=== PATIENT | male | born 1950 | race Caucasian/White ===

== ENCOUNTER → 2022-09-19 10:38 | Outpatient (BNVA) | payer MEDICARE, OTHER, SELFPAY | PROVIDERS: PCP Registered Nurse; Referring Provider Registered Nurse; Visit Provider Nurse Practitioner Gerontology | DX: N40.1 Benign prostatic hyperplasia with lower urinary tract symptoms (principal); R31.29 Other microscopic hematuria | CPT/HCPCS: 36415; 51798; 81003; 99205 ==

== ENCOUNTER 2022-09-19 13:30 | Outpatient (REF) | payer MEDICARE, OTHER, SELFPAY ==
[2022-09-19 14:24] LABS: Bilirubin Negative (Negative); Blood Trace-intact (Negative); Clarity Clear (Clear); Glucose Negative (Negative); Ketones Negative (Negative); Leukocyte Esterase Negative (Negative); Nitrite Negative (Negative); Urobilinogen 0.2 mg/dL (Up to 0.2); pH 6.5 (5-8)
[2022-09-19 14:31] LABS: Bacteria Negative HPF (Negative); C & S Indicated? No; Casts Negative LPF (Negative); Crystals Negative HPF (Negative); Epithelial Cells Rare HPF (Negative); Mucus Negative (Negative); RBC 0-2 HPF (0-2); WBC Negative HPF (0-5)
[2022-09-20 08:43] LABS: PSA, Diagnostic 0.8 ng/mL (<=6.5)
== END 2022-09-19 13:31 | disposition home or self-care (01) ==
LOC: LBN 13:30
PROVIDERS: PCP Registered Nurse; Visit Provider Nurse Practitioner Gerontology
DX: R31.29 Other microscopic hematuria (principal); N40.1 Benign prostatic hyperplasia with lower urinary tract symptoms
CPT/HCPCS: 81003; 81015; 84153

== ENCOUNTER → 2023-01-30 09:31 | Outpatient (BNVA) | payer MEDICARE, OTHER, SELFPAY | PROVIDERS: PCP Registered Nurse; Referring Provider Registered Nurse; Visit Provider Physician Assistant Surgical | DX: R05.3 Chronic cough (principal); L94.0 Localized scleroderma [morphea]; G47.33 Obstructive sleep apnea (adult) (pediatric) | CPT/HCPCS: 99214 ==

== ENCOUNTER → 2023-10-24 12:32 | Outpatient (BNVA) | payer MEDICARE, OTHER, SELFPAY | PROVIDERS: PCP Registered Nurse; Referring Provider Registered Nurse; Visit Provider Physician Assistant Surgical | DX: R05.3 Chronic cough (principal); L94.0 Localized scleroderma [morphea]; I27.20 Pulmonary hypertension, unspecified; G47.33 Obstructive sleep apnea (adult) (pediatric) | CPT/HCPCS: 99214 ==

== ENCOUNTER 2023-10-24 14:35 | Outpatient (CLI) | payer MEDICARE, OTHER, SELFPAY ==
[2023-10-24 14:18] LABS: Abs Immature Grans 0.05 10^3/uL (0.0-0.06); Absolute Basophil Count 0.06 10^3/uL (0.0-0.2); Absolute Eosinophil Count 0.38 10^3/uL (0.0-0.7); Absolute Monocyte Count 1.18 10^3/uL (0.1-0.8); Absolute Neutrophil Count 5.81 10^3/uL (1.2-6.7); Basophils % 0.6 %; Eosinophils % 4.1 %; HCT 43.6 % (40.0-50.0); HGB 14.5 g/dL (13.5-17.5); Immature Grans % 0.5 %; Lymphocytes % 20.3 %; MCH 30.9 pg (27.0-33.0); MCHC 33.3 % (32.0-36.0); MCV 93 fL (80-95); MPV 10.4 fL (8.0-11.0); Monocytes % 12.6 %; Neutrophils % 61.9 %; Platelet Count 312 10^3/uL (130-400); RDW 14.4 % (11.8-14.1); RDW-SD 49.5 fL; WBC 9.38 10^3/uL (4.4-10.8)
[2023-10-24 22:37] LABS: IgE 44 IU/mL (<158)
== END 2023-10-24 14:36 | disposition home or self-care (01) ==
LOC: LBO 14:36
PROVIDERS: PCP Registered Nurse; Visit Provider Physician Assistant Surgical
DX: J45.909 Unspecified asthma, uncomplicated (principal); R05.3 Chronic cough
CPT/HCPCS: 36415; 99214; 82785; 85025

== ENCOUNTER → 2023-11-19 01:31 | Outpatient (CLI) | payer MEDICARE, OTHER, SELFPAY ==
--- NOTE | 2023-11-19 13:18 | DI.CT_ITS ---
Exam(s) CT CHEST WO EXAM: CT CHEST WO CLINICAL HISTORY: chronic cough,R41.3,R05.3,L94.0 TECHNIQUE: Imaging Protocol: Axial computed tomography images with coronal and sagittal reformatted images were created and reviewed CONTRAST MATERIAL: Intravenous: Omnipaque 350 Contrast volume:structured data ml. COMPARISON: CR XR CHEST 2VW (D) from 11/06/2022 FINDINGS: Pulmonary parenchyma: No consolidation. 6 millimeter diameter nodule in the anterior right upper lob e. 5 millimeter diameter nodule left lower lobe. 3 millimeter nodule right lower lobe. No visible emphysematous or fibrotic changes. Tracheobronchial tree: No bronchiectasis or mucous plugging. Mediastinum and Avril: No dominant adenopathy or fluid collection. Pleura: No effusion. No pneumothorax. Heart: The heart is mildly dilated. Mild coronary artery calcifications are seen. Aorta: Thoracic aorta non-dilated. Mild atherosclerotic changes. Pulmonary arteries: No gross evidence of emboli. Upper abdomen: No acute findings. Bones: Degenerative changes in the spine. Soft tissues: Mild bilateral gynecomastia. IMPRESSION: Small bilateral pulmonary nodules, largest 6 millimeters in the right upper lobe. Follow-up chest CT could be considered in 3-6 months. (Ken et al., 2017) RADIATION DOSE DELIVERED: Total DLP DATA REPOSITORY: All CT scans at this facility are submitted to the National Radiology Data Registry (NRDR) Dose Index Registry (DIR) with the [employer] ([employer]). RADIATION OPTIMIZATION: All CT scans at this facility use at least one of these dose optimization te chniques: automated exposure control; mA and/or kV adjustment per patient size (includes targeted exa ms where dose is matched to clinical indication); or iterative reconstruction.
== END ==
PROVIDERS: PCP Registered Nurse; Visit Provider Physician Assistant Surgical
DX: R05.3 Chronic cough (principal); R91.8 Other nonspecific abnormal finding of lung field; L94.0 Localized scleroderma [morphea]; R41.3 Other amnesia
CPT/HCPCS: 71250

== ENCOUNTER → 2023-12-18 09:43 | Outpatient (BNVA) | payer MEDICARE, OTHER, SELFPAY | PROVIDERS: PCP Registered Nurse; Referring Provider Registered Nurse; Visit Provider Internal Medicine Critical Care Medicine | DX: J45.40 Moderate persistent asthma, uncomplicated (principal); R91.1 Solitary pulmonary nodule; I27.20 Pulmonary hypertension, unspecified; G47.33 Obstructive sleep apnea (adult) (pediatric) | CPT/HCPCS: 99214 ==

== ENCOUNTER → 2024-09-04 09:07 | Outpatient (BNVA) | payer MEDICARE, OTHER, SELFPAY | PROVIDERS: PCP Physician Assistant; Referring Provider Registered Nurse; Visit Provider Physician Assistant Surgical | DX: R05.3 Chronic cough (principal); I27.20 Pulmonary hypertension, unspecified; L94.0 Localized scleroderma [morphea]; G47.33 Obstructive sleep apnea (adult) (pediatric); I48.91 Unspecified atrial fibrillation; J45.909 Unspecified asthma, uncomplicated; R91.8 Other nonspecific abnormal finding of lung field | CPT/HCPCS: 99214 ==

== ENCOUNTER → 2025-01-06 12:42 | Outpatient (BNVA) | payer MEDICARE, OTHER, SELFPAY | PROVIDERS: PCP Physician Assistant; Referring Provider Physician Assistant; Visit Provider Physician Assistant Surgical | DX: R05.3 Chronic cough (principal); I27.20 Pulmonary hypertension, unspecified; L94.0 Localized scleroderma [morphea]; G47.33 Obstructive sleep apnea (adult) (pediatric); Z87.891 Personal history of nicotine dependence | CPT/HCPCS: 99214 ==